=== PATIENT | female | born 1990 | race Caucasian/White ===

== ENCOUNTER 2024-09-11 18:07 | Inpatient (IN) | payer OTHER, SELFPAY ==
[2024-09-11 18:17] VITALS: BP 116/67; BMI 22.0
[2024-09-11 19:02] LABS: % Basophils 0.3 % (0-2); % Eosinophils 0.6 % (0-6); % Immature Granulocytes 0.4 % (0-0.5); % Lymphocytes 17.5 % (20.5-51.1); % Neutrophils 76.2 % (42.2-75.2); Absolute Eosinophils 0.1 10^3/uL (0-0.7); Absolute Lymphocytes 1.6 10^3/uL (1.2-3.4); Absolute Monocytes 0.5 10^3/uL (0.1-0.6); Absolute Neutrophils 7.1 10^3/uL (1.4-6.5); Hematocrit 34.7 % (37.0-47.0); Hemoglobin 11.9 g/dL (12.0-16.0); Mean Corp Hgb Conc. 34.3 g/dL (33.0-37.0); Mean Corpuscular Volume 84.4 fL (81.0-99.0); Mean Platelet Volume 10.3 fL (7.4-10.4); Nucleated Red Blood Cells % 0 %; Platelet Count 179 10^3/uL (130-400); Red Blood Cell Count 4.11 10^6/uL (4.20-5.40); Red Cell Dist. Width 14.2 % (11.5-14.5); White Blood Cell Count 9.3 10^3/uL (4.8-10.8)
[2024-09-11] MEDS: SUBLIMAZE 100 MCG EPIDURAL (19:21)
[2024-09-11] MEDS: FENTANYL/BUPIVACAINE 100 EPIDURAL (19:25)
[2024-09-11] MEDS: LR 1000 IV (21:04)
[2024-09-11] MEDS: PITOCIN 30 UNITS/NSS 500 ML IV (22:50)
[2024-09-12] MEDS: TYLENOL 650 MG PO ×2 (05:22→15:39)
[2024-09-12 05:44] LABS: Hematocrit 33.3 % (37.0-47.0); Hemoglobin 11.4 g/dL (12.0-16.0)
[2024-09-12] MEDS: PRENATAL PLUS 1 TABLET PO (08:36)
[2024-09-12] MEDS: MOTRIN 600 MG PO ×2 (09:06→15:40)
[2024-09-12] MEDS: SENOKOT-S 1 TABLET PO (15:40)
[2024-09-13] MEDS: SENOKOT-S 1 TABLET PO (08:24)
[2024-09-13] MEDS: PRENATAL PLUS 1 TABLET PO (08:24)
[2024-09-13 12:55] LABS: Syphilis/T. pallidum Ab Reflex Negative (Negative)
== END 2024-09-13 11:01 | disposition home or self-care (01) | DRG 807 ==
LOC: LDRP 18:07
PROVIDERS: ADMITTING PHYSICIAN Obstetrics & Gynecology
PROC: 10E0XZZ Delivery of Products of Conception, External Approach (ICD-10-PCS; 2024-09-11)
PROC: 0KQM0ZZ Repair Perineum Muscle, Open Approach (ICD-10-PCS; 2024-09-11)
DX: O76 Abnormality in fetal heart rate and rhythm complicating labor and delivery (principal); Z37.0 Single live birth; O70.1 Second degree perineal laceration during delivery; Z3A.39 39 weeks gestation of pregnancy
CPT/HCPCS: 36415; 85014; 85018; 85025; 86780; 86850; 86900; 86901